=== PATIENT | male | born 1970 | race Two or more races ===

== ENCOUNTER 2024-02-07 11:34 | Emergency (ER) | payer OTHER, SELFPAY ==
[2024-02-07 11:53] VITALS: BP 152/101; PULSE 90; RESP 15; TEMP 36.8; O2SAT 95
--- NOTE | 2024-02-07 12:05 | W.ED.GENAD ---
Discharge Plan Disposition Patient Disposition: Home Condition: Stable Discharge Details Clinical Impression: Laceration of left foot, Laceration of right ankle Primary Care Provider: Brinda,Local ED Provider: Derrick Mulligan Home Meds and New Rx's Prescriptions: Continued atorvastatin 40 mg tablet 40 mg PO DAILY Jardiance 25 mg tablet 12.5 mg PO DAILY glipizide-metformin 5-500 mg tablet 2 tab PO BID losartan 50 mg tablet 50 mg PO BID metoprolol tartrate 25 mg tablet 50 mg PO BID Discharge Instructions Instructions: Taking care of cuts, scrapes, and puncture wounds Additional Instructions: You were seen in the emergency department for the laceration of your left foot and right emery. These were dressed with Xeroform dressings which are antibiotic impregnated dressings for your large abrasions, they should heal up within a few days, I did provide you with an extra Xeroform dressing to apply again in 2 to 3 days. I approximated your toe laceration with a Steri-Strip as it was not amenable to suture, you state your tetanus is up-to-date. Please watch for any signs of infection like redness, red streaking up the leg, fever, increasing swelling, drainage of pus from the area. Please return to an emergency department for any of the symptoms. Please use therapeutic dosing of Tylenol (acetamenophen) & Advil (ibuprofen) in an alternating fashion as follows: Take 1000mg of Tylenol every 6 hours without missing doses- that is 4 times per day. Skilled Nursing in between the Tylenol dosings, take 400-600mg of Advil also on a 6 hour schedule, that is also 4 times per day. The daily maximum dosing of Tylenol is 4000mg, and the daily maximum dosing of Advil is 2400mg. This is safe to do for weeks. Please note that some common cold medications & prescription pain medications may contain acetamenophen and you need to read OTC drug labels and factor that in to maximum daily dosings. Discharge Data Discharge Date/Time-TO BE ENTERED AT DEPARTURE: 02/07/24 14:24 HPI General Date/Time Provider Initiated Documentation: 02/07/24 12:05. HPI Narrative: 53 year-old male presents to ED today by POV/ambulating with a chief complaint of slip on stairs last night causing abrasions to his L foot and R emery with onset around 0200. Quality described as large abrasions, with a deeper cut between his R 1st and 2nd toes, no radiation to purulent drainage, active bleeding, numbness, weakness, inability to ambulate, ankle pain, endorses mild L knee soreness. Severity is described as moderate. Palliating factors include simple bandages applied at home. Provoking factors include nothing specific, was getting up to toilet. Events leading up to the incident/Associated Symptoms: Tdap is up-to-date per patient. Patient not anticoagulated. Related Data Home Medications ?Medication ?Instructions ?Recorded ?Confirmed atorvastatin 40 mg tablet 40 mg PO DAILY 02/07/24 02/07/24 empagliflozin 25 mg tablet 12.5 mg PO DAILY 02/07/24 02/07/24 (Jardiance) glipizide 5 mg-metformin 500 mg 2 tab PO BID 02/07/24 02/07/24 tablet losartan 50 mg tablet 50 mg PO BID 02/07/24 02/07/24 metoprolol tartrate 25 mg tablet 50 mg PO BID 02/07/24 02/07/24 Allergies Allergy/AdvReac Type Severity Reaction Status Date / Time No Known Allergies Allergy Unverified 02/07/24 12:03 General Stated Complaint: Laceration CADY: 4 Review of Systems All systems reviewed & are unremarkable except as noted in HPI and below Exam Narrative Exam Narrative: GENERAL APPEARANCE: Well-nourished, non-toxic, awake and alert, atraumatic, no acute distress. SKIN: Warm, pink, dry, 1 x 5 cm abrasion to right emery, 1 x 3 cm abrasion to the base of the medial great toe, there is a deeper laceration/abrasion flap between the first and second toe of the left foot, not amenable to suture, otherwise neurovascularly intact, deep structures intact HEAD: Normocephalic, atraumatic, normal hair distribution for gender/age. EYES: Normal conjunctiva, no exudates on lids/lashes. ENT: Nares patent, no circumoral cyanosis, no facial swelling NECK: Supple, trachea midline, painless cervical ROM. LUNGS/CHEST: Non-labored respirations, normal A/P diameter, symmetrical expansion, no chest wall deformity HEART (CV/PV): No peripheral edema, no JVD. ABDOMEN: Soft, non-distended, no guarding. MSK: Normal ROM, no swelling/deformity to bilateral UEs or LEs, moving all extremities without weakness, no cyanosis, spine midline without tenderness, normal curvature. NEURO: Mental Status AAOx4 - alert to person, place, time, events No facial droop, no forehead involvement. Motor: No focal weakness - strength 5/5 in bilateral UEs and LEs, proximal and distal, symmetric. Sensory: sensation intact to light touch globally. Gait normal: patient ambulated without ataxia into ED room. PSYCH: euthymic, cooperative, pleasant, appropriate speech Course Vital Signs Vital signs: Vital Signs Temperature 36.8 C 02/07/24 11:53 Pulse 90 02/07/24 11:53 Respiratory Rate 15 02/07/24 11:53 Blood Pressure 152/101 H 02/07/24 11:53 Pulse Oximetry 95 02/07/24 11:53 Temperature 36.8 C 02/07/24 11:53 Temperature Source Oral 02/07/24 11:53 Pulse 90 02/07/24 11:53 Respiratory Rate 15 02/07/24 11:53 Respiratory Effort Normal 02/07/24 12:02 Blood Pressure 152/101 H 02/07/24 11:53 Blood Pressure Position Sitting 02/07/24 11:53 Pulse Oximetry 95 02/07/24 11:53 Oxygen Delivery Method Room Air 02/07/24 11:53 Oxygen Flow Rate 0 02/07/24 11:53 Procedures Laceration Laceration 1: Site: lower extremity Side (If applicable): left Size (cm): 2 Description: stellate, flap and irregular Depth: simple, single layer Pre-repair: irrigated extensively and deep structures intact Skin layer closed with: other (1 steri strip for loose approximation) Medical Decision Making This dictation utilizes [id number] dictation software and may contain unedited grammatical errors. 53 year-old male presents to ED today by POV/ambulating with a chief complaint of slip on stairs last night causing abrasions to his L foot and R emery with onset around 0200. Quality described as large abrasions, with a deeper cut between his R 1st and 2nd toes, no radiation to purulent drainage, active bleeding, numbness, weakness, inability to ambulate, ankle pain, endorses mild L knee soreness. Severity is described as moderate. Palliating factors include simple bandages applied at home. Provoking factors include nothing specific, was getting up to toilet. Events leading up to the incident/Associated Symptoms: Tdap is up-to-date per patient. Patients' medical history: Hypercholesterolemia, diabetes mellitus, hypertension. Family and social history: Noncontributory. Pertinent exam findings / vital signs include 1 x 5 cm abrasion to right emery, 1 x 3 cm abrasion to the base of the medial great toe, there is a deeper laceration/abrasion flap between the first and second toe of the left foot, not amenable to suture, otherwise neurovascularly intact, deep structures intact. Differential / pathologies of concern include abrasion, laceration, unlikely fracture. Diagnostic studies of: -None. Interventions of: -Steri-Strip repair of laceration between great toe and second toe of left foot. ED Course/Assessment/Plan: 53-year-old male suffered a minor slip on a couple stairs last night suffering abrasions to bilateral lower extremities, not amenable to suture, I did dress his wounds with Xeroform as well as 1 Steri-Strip to the left great toe abrasion flap to marginally approximated in place. I counseled strict return criteria for signs of infection and to perform generalized wound care.. Findings not consistent with wound infection, suturable wound. Disposition of laceration of right ankle, laceration of left foot. Patient verbalized understanding of the plan and return to ED criteria and engaged in shared decision making. Medical Records Medical records reviewed: Yes I reviewed the patient's medical records. Quality:[facility] Health Related Social Needs: No Data to Display PFSH All Active Problems (Updated 02/07/24 @ 14:04 by FRANCISCO Coughlin) Laceration of right ankle (Acute) Laceration of left foot (Acute) Social History Smoking risk assessment performed?: No
--- NOTE | 2024-02-07 12:15 | DI.RAD_ITS ---
Exam(s) XR TOE LT GREAT EXAM: XR TOE LT GREAT CLINICAL HISTORY: L great toe injury. TECHNIQUE: 2D digital imaging was performed. Three images were obtained. COMPARISON: No exams were available for comparison FINDINGS: BONES: There is a question of a cortical depression at the lateral aspect of the base of the distal phalanx of the great toe suspicious for nondisplaced fracture. Please correlate clinically. No bony destructive lesion is seen. JOINTS: No dislocation present. SOFT TISSUE: Normal. IMPRESSION: Question of a nondisplaced fracture involving the lateral aspect of the base of the distal phalanx of the great toe. A follow-up examination in 10-14 days may be obtained for re-evaluation. DATA REPOSITORY: RADIATION DOSE DELIVERED:
== END 2024-02-07 14:24 | disposition home or self-care (01) ==
LOC: ER 15:32
PROVIDERS: Emergency Provider Physician Assistant
DX: S91.312A Laceration without foreign body, left foot, initial encounter (principal); S80.811A Abrasion, right lower leg, initial encounter; S90.411A Abrasion, right great toe, initial encounter; E11.9 Type 2 diabetes mellitus without complications; Z79.84 Long term (current) use of oral hypoglycemic drugs; W10.8XXA Fall (on) (from) other stairs and steps, initial encounter; Y93.89 Activity, other specified; Y92.018 Other place in single-family (private) house as the place of occurrence of the external cause
CPT/HCPCS: 99283; 73660